=== PATIENT | female | born 1975 | race Caucasian/White ===

== ENCOUNTER 2016-07-05 14:56 | Emergency (ER) | payer OTHER ==
[2016-07-05 15:11] VITALS: BP 125/80
--- NOTE | 2016-07-05 18:09 | UC ---
Delphine Bashir Michael, scribed for BrandonJodiroslyn Villanueva DO on 07/05/16 at 1554 . Neck Pain HPI - HPI Summary HPI Summary: 40 y/o female presents with neck pain(left>right) that started suddenly 5 days ago. She decided to come in todays because she also developed bilateral UE heaviness(left>right), dyspnea and pressure/tightness in her upper back and chest. She is unsure of a mechanism of injury, but she states shoveling 4 weeks ago when she felt a "pinch" in her left neck. She immediately stopped shoveling and rested. The pain did not persist. One week after shoveling, the pt describes the neck pain(left>right) as stiffness and is worse on the left side, and currently it has radiated to her jaw. The pt describes the neck pain as a 5 out of 10 on a pain severity scale, and the neck stiffness is worsened with movement and alleviated with heat. She states that the bilateral UE heaviness is worse in her LUE and radiates to her shoulders. She also c/o a lump in her throat that started one week before the neck pain. The "lump sensation" is described as tightness, worsened with palpation, and alleviated with swallowing food. The pt has seen her chiropractor, but the sensation in her throat still persists. She has not consulted a specialist for her throat sx. The pt also admits to dizziness. The dizziness has been present for 10 months. She describes the dizziness as a wave like sensation and denies spinning. Nothing alleviates the dizziness. Currently at the , the pt is at her baseline for dizziness. She denies all other symptoms. The FHx is significant for hyperlipidemia and MA before the age of 50. Her paternal grandmother of an MA in her late 40's. - History of Current Complaint Chief Complaint: GeneralIllness Stated Complaint: NECK PAIN, BACK PAIN, AND HEAVY ARMS Time Seen by Provider: 07/05/16 15:14 Hx Obtained From: Patient, Medical Records Hx Last Menstrual Period: 14 days ago Onset/Duration Of Injury/Symptoms: Weeks Mechanism Of Injury: No Known Trauma Onset/Duration: Sudden Onset, Lasting Days, Still Present Severity: Moderate Pain Intensity: 5 Pain Scale Used: 0-10 Numeric Location: Discrete At: - neck Character: Stiff Aggravating Factors: Movement Alleviating Factors: Heat Associated Signs & Symptoms: Negative: Negative - neck stiffness. throat sensation. dizziness. chest tightness. back tightness. bilat UE heaviness, Swelling, Redness, Bruising, Fever, Nuchal Rigity, Weakness, Headache, Paresthesia - Allergies/Home Medications Allergies/Adverse Reactions: Allergies Allergy/AdvReac Type Severity Reaction Status Date / Time Sulfa Antibiotics Allergy THROAT & Verified 01/25/16 10:26 MOUTH SWELLING, RASH ALL OVER BODY Home Medications: Home Medications Ibuprofen TAB* [Advil TAB*] 1 tab PO PRN 07/05/16 [History] PMH/Surg Hx/FS Hx/Imm Hx Previously Healthy: Yes Endocrine History Of: Denies: Diabetes, Thyroid Disease Cardiovascular History Of: Denies: Cardiac Disorders, Hypertension, Pacemaker/ICD Respiratory History Of: Denies: COPD, Asthma GI/ History Of: Denies: Ulcer, Renal Disease - Surgical History Surgical History: Yes Surgery Procedure, Year, and Place: COPOSCOPY - Family History Known Family History: Positive: Other - MA before age of 50. hyperlipidemia. - Social History Occupation: Employed Full-time - currently on leave d/t dizziness Lives: With Family Alcohol Use: Weekly Alcohol Amount: glass of wine with dinner 3-4 times a week Substance Use Type: None Smoking Status (MU): Never Smoked Tobacco Review Of Systems Constitutional: Positive: Negative Skin: Positive: Negative Eyes: Positive: Negative ENT: Positive: Negative Respiratory: Positive: Other - dyspnea, chest tightness. Negative: Shortness Of Breath Cardiovascular: Positive: Chest Pain Gastrointestinal: Positive: Negative Genitourinary: Positive: Negative Musculoskeletal: Positive: Other: - neck stiffness. bilat UE heaviness. esophageal senstation. back tightness. Neurological: Positive: Other - dizziness Psychological: Positive: Anxious All Other Systems Reviewed And Are Negative: Yes Physical Exam Triage Information Reviewed: Yes Appearance: Well-Appearing, No Pain Distress, Well-Nourished Vital Signs: Initial Vital Signs Temp 99.2 F 07/05/16 15:02 Pulse 80 07/05/16 15:02 Resp 18 07/05/16 15:02 BP 125/80 07/05/16 15:02 Pulse Ox 100 07/05/16 15:02 Vital Signs Reviewed: Yes Eyes: Positive: Conjunctiva Clear. Negative: Discharge ENT: Positive: Hearing grossly normal. Negative: Muffled/hoarse voice Neck: Positive: Supple, Tenderness @ - tender to palpation-perispinal tenderness with left greater than right.. Negative: Nuchal Rigidity, Enlarged Nodes @ Respiratory: Positive: Lungs clear, Normal breath sounds, No respiratory distress, No accessory muscle use Cardiovascular: Positive: RRR, No Murmur Abdomen Description: Positive: Nontender, Soft. Negative: Distended, Guarding Bowel Sounds: Positive: Present Musculoskeletal: Positive: Other: - see neck exam Neurological: Positive: Alert, Muscle Tone Normal Psychological: Positive: Age Appropriate Behavior Skin Exam: Normal - nml color. warm. dry. Diagnostics - EKG Cardiac Rhythm: Sinus: Normal - 75 bpm Ectopy: None ST Segment: Normal Neck Pain Course/Dx - Course Course Of Treatment: The patient was advised that she should be transferred to the ED by ambulance. The risk factors of signing out AMA and not transfering to the ED were discussed with the pt, and the risk factors for traveling to the ED not by ambulance were also discussed. The pt is signing out AMA and will not be going to the ED. - Differential Dx/Diagnosis Differential Dx/HQI/PQRI: Sprain, Other - mi Provider Diagnoses: atypical cp, neck jaw arm pain Discharge - Discharge Plan Condition: Stable Disposition: AGAINST MEDICAL ADVICE Discharge Disposition Comment: pt is signing out AMA Referrals: Sharmila Chisholm MD [Medical Doctor] - The documentation as recorded by the Delphine fulton Michael accurately reflects the service I personally performed and the decisions made by me, Jodi Taylor DO.
== END 2016-07-05 16:21 | disposition left against medical advice (07) ==
LOC: UCEAST 14:56
DX: R07.89 Other chest pain (principal); R68.84 Jaw pain; M79.602 Pain in left arm
CPT/HCPCS: 93005; 99212; G0463